=== PATIENT | male | born 1985 | race Caucasian/White ===

== ENCOUNTER 2019-04-24 21:38 | Emergency (ER) | payer OTHER ==
[~2019-04-24] VITALS: Ht 177.8 cm; Wt 104.5 kg
[2019-04-24 21:39] VITALS: BP 169/93
[2019-04-24] MEDS ORDERED: triamcinolone acetonide 40mg/ml inj IM ONE (21:45)
[2019-04-24] MEDS ORDERED: dexamethasone 4mg/ml inj IM ONE (21:45)
== END 2019-04-24 21:58 | disposition home or self-care (01) ==
LOC: ER 21:39
DX: L23.9 Allergic contact dermatitis, unspecified cause (principal)
CPT/HCPCS: 96372; 99283; J1100; J3301